=== PATIENT | female | born 1970 | race Caucasian/White ===

== ENCOUNTER → 2017-06-24 | Outpatient (CLI) | payer OTHER ==
[~2017-06-24] MED LIST: FLEXERIL 1010 MG/TAB PO; LODINE 300300 MG/CAP PO; NORCO 325 MG-7.1 TAB PO; PEPCID 20MG TAB20 MG PO; RELPAX20 MG PO; TOPAMAX50 MG PO
== END ==
LOC: MHCPAIN 12:00
DX: G89.29 Other chronic pain (principal); M53.3 Sacrococcygeal disorders, not elsewhere classified; M70.61 Trochanteric bursitis, right hip; M70.62 Trochanteric bursitis, left hip
CPT/HCPCS: G0463

== ENCOUNTER → 2017-06-30 | Outpatient (CLI) | payer OTHER | LOC: MHCPAIN 15:27 | DX: M70.61 Trochanteric bursitis, right hip (principal); M70.62 Trochanteric bursitis, left hip | CPT/HCPCS: J1040 ==

== ENCOUNTER 2019-11-04 06:19 | Day surgery (SDC) | payer OTHER ==
[~2019-11-04] VITALS: Ht 172.7 cm; Wt 66.0 kg
[2019-11-04 06:50] VITALS: BP 123/90; PULSE 87; TEMP 97.9
[2019-11-04] MEDS ORDERED: AMITRIPTYLINE H50 M1 PO (06:57)
[2019-11-04] MEDS ORDERED: PHENERGAN 25 TA25 MG PO (06:59)
[2019-11-04] MEDS ORDERED: AMBIEN 5MG TABLE5 MG PO (06:59)
[2019-11-04] MEDS ORDERED: ZOFRAN ODT8 MG PO (07:00)
[2019-11-04] MEDS ORDERED: ZANAFLEX2 MG PO (07:00)
[2019-11-04] MEDS ORDERED: TOPROL XL 25MG25 MG PO (07:03)
[2019-11-04] MEDS ORDERED: PROTONIX 40MG T40 MG PO (07:04)
[2019-11-04] MEDS ORDERED: BENTYL 20MG20 MG/TAB PO (07:05)
--- NOTE | 2019-11-04 07:12 | NUR ---
TO NAY AT 0625- CALL LIGHT IN REACH FRIEND ANNIE WILL CENTR[employer] OFFICE ASSOCIATE PATIENT UPON DISCHARGE.
--- NOTE | 2019-11-04 08:20 | NUR ---
Patient returns from EGD and colonoscopy. Transfers from cart to the bathroom with one person assist. IV fluids infusing. Denies abdominal pain or nausea.
[2019-11-04 08:25] VITALS: BP 116/83; PULSE 69
--- NOTE | 2019-11-04 08:25 | NUR ---
To [facility] from the bathroom and is resting in recliner. Given Sprite to drink. Temp 97.6 and room air sats 99%. Allowed to rest.
[2019-11-04 08:40] VITALS: BP 119/78; PULSE 70
--- NOTE | 2019-11-04 08:40 | NUR ---
Returns to the bathroom with one person assist.
--- NOTE | 2019-11-04 08:45 | NUR ---
IV discontinued and patient dresses self.
--- NOTE | 2019-11-04 08:55 | NUR ---
Instructions signed. [facility] understanding of home cares and follow up as needed in Dr. Earl office. Provided number for questions and concerns.
--- NOTE | 2019-11-04 09:07 | NUR ---
Patient dismissed to home per private vehicle driven by friend with dismissal instructions in hand. Taken to the front door per wheelchair and assisted into car by this RN with instructions in hand.
== END 2019-11-04 09:07 | disposition home or self-care (01) ==
LOC: SDCO 06:19
DX: R11.2 Nausea with vomiting, unspecified (principal); K29.30 Chronic superficial gastritis without bleeding; I10 Essential (primary) hypertension; K58.0 Irritable bowel syndrome with diarrhea; K21.9 Gastro-esophageal reflux disease without esophagitis; G43.909 Migraine, unspecified, not intractable, without status migrainosus; N70.11 Chronic salpingitis; Z88.1 Allergy status to other antibiotic agents; Z79.899 Other long term (current) drug therapy
CPT/HCPCS: J2405; J2704; J7120

== ENCOUNTER → 2020-11-05 | Outpatient (CLI) | payer OTHER ==
[~2020-11-05] MED LIST changes: +AMBIEN 5MG TABLE5 MG PO; +AMITRIPTYLINE H50 M1 PO; +BENTYL 20MG20 MG/TAB PO; +PHENERGAN 25 TA25 MG PO; +PROTONIX 40MG T40 MG PO; +TOPROL XL 25MG25 MG PO; +ZANAFLEX2 MG PO; +ZOFRAN ODT8 MG PO
== END ==
LOC: SDCO 10-24 07:30 → COL.LAB 08:00 → SDCO 11-08 07:30 → EDSTATUS 11-08 07:30 → SDCO 11-08 09:30
DX: K40.90 Unilateral inguinal hernia, without obstruction or gangrene, not specified as recurrent (principal); K43.9 Ventral hernia without obstruction or gangrene; Z20.822 Contact with and (suspected) exposure to COVID-19